=== PATIENT | male | born 1950 | race Caucasian/White ===

== ENCOUNTER → 2023-06-29 15:09 | Outpatient (BNVA) | payer MEDICARE, SELFPAY | PROVIDERS: PCP Internal Medicine; Referring Provider Nurse Practitioner Family; Visit Provider Specialist | DX: G20.B2 Parkinson's disease with dyskinesia, with fluctuations (principal); I95.1 Orthostatic hypotension; G31.84 Mild cognitive impairment of uncertain or unknown etiology; G47.52 REM sleep behavior disorder | CPT/HCPCS: 99205 ==

== ENCOUNTER → 2023-09-11 09:04 | Outpatient (BNVA) | payer MEDICARE, SELFPAY | PROVIDERS: PCP Internal Medicine; Visit Provider Specialist | DX: G20.B2 Parkinson's disease with dyskinesia, with fluctuations (principal) | CPT/HCPCS: 96116; 99214 ==

== ENCOUNTER → 2023-12-18 09:00 | Outpatient (BNVA) | payer MEDICARE, SELFPAY | PROVIDERS: PCP Internal Medicine; Visit Provider Specialist | DX: G20.B2 Parkinson's disease with dyskinesia, with fluctuations (principal) | CPT/HCPCS: 99215 ==

== ENCOUNTER → 2024-06-15 09:40 | Outpatient (BNVA) | payer MEDICARE, SELFPAY | PROVIDERS: PCP Internal Medicine; Visit Provider Specialist | DX: G20.B2 Parkinson's disease with dyskinesia, with fluctuations (principal); K59.00 Constipation, unspecified; R41.3 Other amnesia | CPT/HCPCS: 99214 ==

== ENCOUNTER → 2024-12-13 13:47 | Outpatient (BNVA) | payer MEDICARE, SELFPAY | PROVIDERS: PCP Internal Medicine; Visit Provider Specialist | DX: G20.B2 Parkinson's disease with dyskinesia, with fluctuations (principal); Z87.891 Personal history of nicotine dependence | CPT/HCPCS: 99214 ==